=== PATIENT | male | born 1950 | race Caucasian/White ===

== ENCOUNTER → 2016-08-17 | Outpatient (CLI) | payer OTHER, MEDICARE ==
[~2016-08-17] MED LIST: ALBUTEROL2.5 MG/3 M IH; BISOPROLOL5 MG PO; CLOPIDOGREL PO; CRESTOR40 MG PO; DANTRIUM25 MG PO; DUREZOL 5 ML5 ML OP; DYAZIDE 37.5-21 EACH PO; GENTAMICIN180 MG/502 IH; LISINOPRIL20 MG PO; NEURONTIN100 M1 PO; OYSTER SHELL C500 MG PO; PERCOCET 7.5/321 TA1 PO; POLYTRIM 1000010 ML OP; PREDNISONE 5MG5 MG PO; PREDNISONE10 MG PO; PRILOSEC 20MG20 MG PO; PULMICORT0.5 MG/2 M IH; QVAR0.08 MG/AC IH; SINGULAIR10 MG PO; THEOCAP200 MG PO; THEODUR 200MG PO; VENTOLIN0.09 MG IH; VITAMIN B11000 MCG/M IM; ZANTAC150 M1 PO; ZYRTEC ALLERGY10 MG PO
== END ==
LOC: RAD 08:53
DX: M25.552 Pain in left hip (principal); M25.562 Pain in left knee; M16.0 Bilateral primary osteoarthritis of hip; M17.12 Unilateral primary osteoarthritis, left knee

== ENCOUNTER → 2016-12-21 | Outpatient (CLI) | payer OTHER, MEDICARE ==
[2013-12-29 11:05] VITALS: BP 170/100
== END ==
LOC: LAB 08:40
DX: I25.10 Atherosclerotic heart disease of native coronary artery without angina pectoris (principal); M54.16 Radiculopathy, lumbar region; E03.4 Atrophy of thyroid (acquired)

== ENCOUNTER → 2017-01-05 | Outpatient (CLI) | payer OTHER, MEDICARE ==
[~2017-01-05] VITALS: Ht 190.5 cm; Wt 127.3 kg
[2017-01-05 09:43] VITALS: BP 146/93
== END ==
LOC: AMSURD 08:52
DX: R73.02 Impaired glucose tolerance (oral) (principal); I25.10 Atherosclerotic heart disease of native coronary artery without angina pectoris; M54.16 Radiculopathy, lumbar region; Z01.812 Encounter for preprocedural laboratory examination; Z51.81 Encounter for therapeutic drug level monitoring

== ENCOUNTER → 2017-12-06 | Outpatient (CLI) | payer OTHER, MEDICARE ==
[~2017-12-06] VITALS: Ht 190.5 cm; Wt 133.2 kg
[~2017-12-06] MED LIST changes: +BISOPROLOL FUMA10 M1 PO; +FLOMAX0.4 MG PO; +OYSTER SHELL C1 EAC4 PO; -OYSTER SHELL C500 MG PO; +PERCOCET 325 MG1 TAB PO; -PERCOCET 7.5/321 TA1 PO; +PREDNISONE1 MG PO; -QVAR0.08 MG/AC IH; +QVAR8.7 G1 INH; +RT ALBUTEROL CC18 GM IH; +RT SPIRIVA INH18 MCG IH; +THEO-24 20200 MG/CAP PO; -THEOCAP200 MG PO; -VENTOLIN0.09 MG IH
[2017-12-06 10:51] VITALS: BP 168/87
[2017-12-06 11:28] LABS: HEMATOCRIT 43.7 % (42.0-52.0); HEMOGLOBIN 13.9 g/dL (13.5-18.0); MEAN CELL VOLUME 96 fl (78-100); MEAN CORPUSCULAR HEMOGLOBIN 31 pg (27-31); MEAN CORPUSCULAR HGB CONC 32 g/dL (33-37); MEAN PLATELET VOLUME 9.3 fl (7.4-10.4); PLATELET COUNT 205 K/mm3 (130-400); RED BLOOD COUNT 4.55 M/mm3 (4.20-5.60); RED CELL DISTRIBUTION WIDTH 15.1 % (11.5-14.5); WHITE BLOOD COUNT 9.5 K/mm3 (4.8-10.8)
[2017-12-06 11:39] LABS: ALBUMIN 4.2 g/dL (3.5-5.0); BUN/CREATININE RATIO 15.3 (6.0-26.0); CALCIUM 9.5 mg/dL (8.4-10.2); POTASSIUM 4.4 mmol/L (3.6-5.0); TOTAL BILIRUBIN 0.7 mg/dL (0.2-1.3); TOTAL PROTEIN 7.2 g/dL (6.3-8.2)
[2017-12-06 13:25] LABS: URINE APPEARANCE CLEAR; URINE BILIRUBIN NEGATIVE (NEGATIVE); URINE BLOOD NEGATIVE (NEGATIVE); URINE COLOR YELLOW; URINE GLUCOSE NEGATIVE (NEGATIVE); URINE KETONE NEGATIVE (NEGATIVE); URINE LEUKOCYTE ESTERASE NEGATIVE (NEGATIVE); URINE NITRATE NEGATIVE (NEGATIVE); URINE PROTEIN(semi-quant) TRACE mg/dL (NEGATIVE); URINE UROBILINOGEN NORMAL (NORMAL)
[2017-12-07 08:54] LABS: LYMPHOCYTE 14 % (20-51); MONOCYTE 5 % (3-10); NEUTROPHILS 78 % (42-75)
== END ==
LOC: AMSURD 10:12
PROVIDERS: Internal Medicine
DX: Z01.812 Encounter for preprocedural laboratory examination (principal); M54.16 Radiculopathy, lumbar region; Z51.81 Encounter for therapeutic drug level monitoring; E03.4 Atrophy of thyroid (acquired); R73.02 Impaired glucose tolerance (oral); Z12.5 Encounter for screening for malignant neoplasm of prostate; I25.10 Atherosclerotic heart disease of native coronary artery without angina pectoris

== ENCOUNTER → 2018-03-18 | Outpatient (CLI) | payer OTHER, MEDICARE ==
[2017-12-06 10:51] VITALS: BP 168/87
[2018-03-18 11:12] LABS: BASO # 0.1 (0.02-0.10); EOS # 0.1 (0.04-0.40); EOS % 1.1 % (0.0-4.0); HEMATOCRIT 46.7 % (42.0-52.0); HEMOGLOBIN 14.7 g/dL (13.5-18.0); LYMPH# 1.5 (1.50-4.00); MEAN CELL VOLUME 96 fl (78-100); MEAN CORPUSCULAR HEMOGLOBIN 30 pg (27-31); MEAN CORPUSCULAR HGB CONC 32 g/dL (33-37); MEAN PLATELET VOLUME 9.5 fl (7.4-10.4); MONO # 0.8 (0.20-0.80); PLATELET COUNT 270 K/mm3 (130-400); RED BLOOD COUNT 4.88 M/mm3 (4.20-5.60); RED CELL DISTRIBUTION WIDTH 14.9 % (11.5-14.5); WHITE BLOOD COUNT 12.2 K/mm3 (4.8-10.8)
[2018-03-18 11:13] LABS: NEU # 9.6 (1.40-6.50)
[2018-03-18 11:22] LABS: ALBUMIN 4.6 g/dL (3.5-5.0); BUN/CREATININE RATIO 23.3 (6.0-26.0); CALCIUM 10.2 mg/dL (8.4-10.2); POTASSIUM 4.9 mmol/L (3.6-5.0); TOTAL BILIRUBIN 1.2 mg/dL (0.2-1.3); TOTAL PROTEIN 7.4 g/dL (6.3-8.2)
[2018-03-18 12:15] LABS: ERYTHROCYTE SEDIMENTATION RATE 16 mm/hr (0-20)
== END ==
LOC: LAB 10:31
PROVIDERS: Internal Medicine
DX: I25.10 Atherosclerotic heart disease of native coronary artery without angina pectoris (principal); I10 Essential (primary) hypertension; R73.02 Impaired glucose tolerance (oral)

== ENCOUNTER → 2018-05-14 | Outpatient (CLI) | payer OTHER, MEDICARE ==
[2017-12-06 10:51] VITALS: BP 168/87
[2018-05-14 09:18] LABS: HEMATOCRIT 38.9 % (42.0-52.0); HEMOGLOBIN 12.6 g/dL (13.5-18.0); MEAN CELL VOLUME 97 fl (78-100); MEAN CORPUSCULAR HEMOGLOBIN 32 pg (27-31); MEAN CORPUSCULAR HGB CONC 32 g/dL (33-37); MEAN PLATELET VOLUME 9.1 fl (7.4-10.4); PLATELET COUNT 272 K/mm3 (130-400); RED CELL DISTRIBUTION WIDTH 15.6 % (11.5-14.5); WHITE BLOOD COUNT 10.3 K/mm3 (4.8-10.8)
[2018-05-14 09:24] LABS: ALBUMIN 4.5 g/dL (3.5-5.0); POTASSIUM 4.7 mmol/L (3.6-5.0); TOTAL BILIRUBIN 0.9 mg/dL (0.2-1.3); TOTAL PROTEIN 7.3 g/dL (6.3-8.2)
[2018-05-14 10:09] LABS: LYMPHOCYTE 15 % (20-51); MONOCYTE 7 % (3-10); NEUTROPHILS 78 % (42-75)
[2018-05-14 10:16] LABS: URINE APPEARANCE CLEAR; URINE BILIRUBIN NEGATIVE (NEGATIVE); URINE BLOOD NEGATIVE (NEGATIVE); URINE COLOR YELLOW; URINE GLUCOSE NEGATIVE (NEGATIVE); URINE KETONE NEGATIVE (NEGATIVE); URINE LEUKOCYTE ESTERASE NEGATIVE (NEGATIVE); URINE NITRATE NEGATIVE (NEGATIVE); URINE PROTEIN(semi-quant) TRACE mg/dL (NEGATIVE); URINE UROBILINOGEN NORMAL (NORMAL)
[2018-05-14 10:17] LABS: URINE MUCUS PRESENT (NOT PRESENT)
[2018-05-14 11:02] LABS: ERYTHROCYTE SEDIMENTATION RATE 32 mm/hr (0-20)
== END ==
LOC: LAB 08:58
PROVIDERS: Internal Medicine
DX: I10 Essential (primary) hypertension (principal); R73.02 Impaired glucose tolerance (oral); N30.00 Acute cystitis without hematuria

== ENCOUNTER 2018-10-08 13:10 | Inpatient (IN) | payer OTHER, MEDICARE ==
[~2018-10-08] VITALS: Ht 190.5 cm; Wt 117.4 kg
[~2018-10-08 13:10] MED LIST changes: +ADVAIR DISKUS1 DS2 IH; +AZITHROMYCIN 500MGPK PO; +CALCIUM WITH D31 CTB PO; +DEPO-TESTOS200 MG/M1 IM; +LOTRISONE CREAM15 G1 TOP; +OXYCODONE HCL10 M1 PO; -OYSTER SHELL C1 EAC4 PO; -PREDNISONE 5MG5 MG PO; +SINGULAIR PO; -SINGULAIR10 MG PO; -ZANTAC150 M1 PO; +ZANTAC300 MG PO
[2018-10-08 13:38] VITALS: BP 112/69
[2018-10-08 13:45] VITALS: BP 112/69
[2018-10-08 18:57] VITALS: BP 126/71
[2018-10-08 23:20] VITALS: BP 117/73
[2018-10-09 03:10] VITALS: BP 136/74
[2018-10-09 06:39] VITALS: BP 110/61
[2018-10-09 11:20] VITALS: BP 116/62
[2018-10-09 15:00] VITALS: BP 117/62
[2018-10-09 18:00] VITALS: BP 149/65
[2018-10-09 23:27] VITALS: BP 122/55
[2018-10-10 03:16] VITALS: BP 115/71
[2018-10-11 11:00] VITALS: BP 153/75
[2018-10-13 07:49] LABS: HEMOGLOBIN 11.3 g/dL (13.5-18.0); MEAN CELL VOLUME 94 fl (78-100); MEAN CORPUSCULAR HEMOGLOBIN 30 pg (27-31); MEAN CORPUSCULAR HGB CONC 31 g/dL (33-37); MEAN PLATELET VOLUME 9.3 fl (7.4-10.4); PLATELET COUNT 322 K/mm3 (130-400); RED BLOOD COUNT 3.82 M/mm3 (4.20-5.60); RED CELL DISTRIBUTION WIDTH 15.4 % (11.5-14.5); WHITE BLOOD COUNT 14.1 K/mm3 (4.8-10.8)
[2018-10-13 07:50] LABS: CALCIUM 9.4 mg/dL (8.4-10.2); POTASSIUM 4.3 mmol/L (3.6-5.0)
[2018-10-13 07:51] LABS: BAND 2 % (0-10); LYMPHOCYTE 4 % (20-51); MONOCYTE 1 % (3-10); NEUTROPHILS 93 % (42-75)
== END 2018-10-11 11:03 | disposition swing bed (61) | DRG 192 ==
LOC: MED/SURG 13:10
PROVIDERS: Physician Assistant; ADMIT Nurse Practitioner Primary Care
DX: J44.1 Chronic obstructive pulmonary disease with (acute) exacerbation (principal); I10 Essential (primary) hypertension; E78.5 Hyperlipidemia, unspecified; G47.30 Sleep apnea, unspecified; E11.9 Type 2 diabetes mellitus without complications; Z85.828 Personal history of other malignant neoplasm of skin; Z87.891 Personal history of nicotine dependence; M54.5 Low back pain; Z99.81 Dependence on supplemental oxygen; J32.0 Chronic maxillary sinusitis
CPT/HCPCS: A4216; C9113; J0456; J0696; J1071; J1650; J2270; J2930; J3420; J7050

== ENCOUNTER 2018-10-11 11:21 | Inpatient (IN) | payer OTHER, MEDICARE ==
[~2018-10-11] VITALS: Ht 190.5 cm; Wt 123.0 kg
--- NOTE | 2018-10-11 12:36 | NUR ---
admitted pt as swing pt. Personal items recorded were: Cell phone, nuero stimulator with furnace charger, cell phone with furnace charger, small O2 bottle, cane, eye glasses and clothes.
[2018-10-11 13:04] VITALS: BP 153/75
[2018-10-11 18:28] VITALS: BP 163/77
[2018-10-11 18:55] VITALS: BP 163/77
--- NOTE | 2018-10-11 19:29 | NUR ---
pts weight today (10/11/18) was 269 lbs an increase from (10/08/18). I spoke to Maggie the provider regardint the 9lb weight gain. She ordered lasix.
--- NOTE | 2018-10-12 03:50 | NUR ---
In general patient has been on oxygen 2L/NC and at rest his pulse is in the 80-90'S with a sat of 92-93%. With ambulatation though his pulse raises to 130's and sats drop to the low 80's%. He has been recovering fairly quickly through the night until about 20 minutes ago. He was ambulating to the bathroom and made it back to bed but was gasping for air. After sitting for a minute he was still unable to recover and called for nurse, Nurse found patient sitting on edge of bed in moderate respiratory distress, is able to speak in 1 word answers, c/o some pressure across his chest and is unable to "catch his breath" PRN albuterol neb given, tolerated well, with coaching patient is able to bring his respiratory rate down and gradually take deeper breaths. By the end of the neb treatment he is breathing much easier and sats have recoved to >90% on the 2L/NC. Pulse back down below 100.
[2018-10-12 06:25] VITALS: BP 161/73
[2018-10-12 08:00] LABS: ALBUMIN 4.1 g/dL (3.5-5.0); CALCIUM 9.6 mg/dL (8.4-10.2); POTASSIUM 4.4 mmol/L (3.6-5.0); TOTAL BILIRUBIN 0.5 mg/dL (0.2-1.3); TOTAL PROTEIN 6.8 g/dL (6.3-8.2)
[2018-10-12 08:02] LABS: HEMATOCRIT 39.1 % (42.0-52.0); HEMOGLOBIN 12.5 g/dL (13.5-18.0); MEAN CELL VOLUME 94 fl (78-100); MEAN CORPUSCULAR HEMOGLOBIN 30 pg (27-31); MEAN CORPUSCULAR HGB CONC 32 g/dL (33-37); PLATELET COUNT 294 K/mm3 (130-400); RED BLOOD COUNT 4.15 M/mm3 (4.20-5.60); RED CELL DISTRIBUTION WIDTH 14.9 % (11.5-14.5); WHITE BLOOD COUNT 11.3 K/mm3 (4.8-10.8)
[2018-10-12 08:22] LABS: LYMPHOCYTE 11 % (20-51); MONOCYTE 3 % (3-10); NEUTROPHILS 86 % (42-75)
--- NOTE | 2018-10-12 15:04 | NUR ---
pt sitting at side of bed, working on his computer, His O2 is at 2.5L NC. still coughing but not as frequent as this morning. Pt is pleased with a new potassium order that was ordered and given. States it is helping bring up secretions when he coughs. States his pain is at a tolerble level of 4/10, and refuses pain med. Pt has room priviliges and makes frequent restroom visits, he is on lasix for edema. Call light is within reach and will continue to monitor.
[2018-10-12 18:19] VITALS: BP 139/75
--- NOTE | 2018-10-12 19:18 | NUR ---
gave report to miroslava menard nurse miroslava
--- NOTE | 2018-10-12 19:20 | NUR ---
Bedside report received from Kaylie Acosta RN. Pt sitting up side of bed, a/o x 3. Oxygen on at 2L/NC, Sp02 93-94%. Continues on tele-monitor. Denies chest pain. Continues to become SOB with any exertion. Continues to have productive cough.
--- NOTE | 2018-10-12 19:50 | NUR ---
Given a cup of warm tea with honey per pt request. Pt stated "it helps with the tickle in my thoart."
--- NOTE | 2018-10-12 23:30 | NUR ---
[id number] Pt had severe coughing episodes, coughing up thick dark yellow mucus. SOB breath, unable to catch breath, respirations labored. Sp02 92%. Oxygen briefly increased from 2L/NC to 4L/NC and then to simple oxygen mask at 6 liters for comfort until pt felt he was able to catch his breath and returned respirations returned to none labored. 2310 Given 0.5mg of ativan given SIVP. 2325 Sp02 94% on oxygen at 2L/NC.
--- NOTE | 2018-10-13 02:29 | NUR ---
Q hourly checks done. Bed alarm set and call light with in reach of pt. Pulse 74, Sp02 93-95% and respirations 18 and deep.
--- NOTE | 2018-10-13 03:30 | NUR ---
Q hourly checks done. Has been resting in bed, eyes closed with deep even respirations. Sp02 93-95% on 2L/NC. Continues on tele-monitor. Heart rate has been in 70's. At 0300 Sp02 86%, pt nasal cannula out of nose. Pt opened eyes when spoken too and applied oxygen. Sp02 94%.
--- NOTE | 2018-10-13 04:15 | NUR ---
0354 Pt awake and a/o x 3. Became SOB and had labored breathing. Rhonchi noted in upper and lower lungs. Breathing treatment started. 0400 tolerated breathing treatment without difficulty. Sp02 92%. 0412 Sp02 88%, heart 122. Pt stated he had just returned from the bathroom. Oxygen increased to 4L/NC. Sp02 92%. Pt given warm tea with honey per pt request.
--- NOTE | 2018-10-13 04:16 | NUR ---
0354 Pt c/o of pain left lower back, pt requesting pain medication. Dr Zamudio called and notified. Order received for oxycodone 5mg PO x 1 now. 0412 oxycodone 5mg PO given. Pt drinking tea with honey.
--- NOTE | 2018-10-13 05:00 | NUR ---
Oxygen decreased to 3L/NC. Sp02 92%
[2018-10-13 06:34] VITALS: BP 146/78
--- NOTE | 2018-10-13 07:20 | NUR ---
Bedside shift report given to Rola Javier RN
--- NOTE | 2018-10-13 07:30 | NUR ---
BEDSIDE REPORT RECEIVED FROM VINICIO VALADEZ
--- NOTE | 2018-10-13 08:00 | NUR ---
PATIENT SITTING UP IN RECLINER. SHIFT ASSESSMENT COMPLETE. PATIENT ALERT AND ORIENTED X4. REPORTS HAVING PAIN RATED 5-6/10 IN BACK. PATIENT'S COLOR FLUSHED. PATIENT ON OXYGEN VIA NASAL CANNULA AT 2L. PATIENT REPORTS NOT HAVING A VERY GOOD NIGHT DUE TO COUGHING SPELLS. STATES "I'M SORRY TO SAY BUT I KNOW IT'S NOT OVER I KNOW IT'S GOING TO GO ON TODAY" PATIENT REPORTS THAT COUGHING SPELLS HAVE WORSENED. STATES "I DON'T KNOW WHAT'S GOING ON I MEAN IT GETS SO BAD I FEEL LIKE I'M GOING TO BLACKOUT" REPORTS THAT HE IS NOW COUGHING UP THICK GREEN SPUTUM. SP02 92-93% PER [employer] LOADING SUPERVISOR. HEART RATE IN THE 90'S TO LOW 100'S WHILE AT REST. PATIENT VOICES CONCERN ABOUT HIS PULSE OXIMETRY LEVELS RUNNING LOWER THAN THEY HAD BEEN. STATES "I JUST DON'T UNDERSTAND IT THEY ARE TELLING ME I'M IN THE LOW 90'S BUT A COUPLE DAYS AGO THEY WERE SAYING I WAS 97%" PATIENT HAS RONCHI THROUGHOUT ALL LUNG ARBOLEDA. PATIENT HAS +2 EDEMA TO BILAT LOWER EXT. PATIENT ENCOURAGED TO ELEVATE LEGS THROUGHOUT DAY TOLERATED TO HELP WITH SWELLING. PATIENT REPORTS THAT IN THE PAST HE HAS HAD SWELLING IN LEGS BUT STATES "NOTHING THIS BAD" PATIENT HAS ROOM PRIVILEGES. PATIENT'S CALL LIGHT WITHIN REACH.
--- NOTE | 2018-10-13 11:00 | NUR ---
notified that patient continues to have cough that causes patient to feel dizzy and as though he is going to black out. order received for sputum culture. asked about steroid dose continue current steroid dosing for now.
--- NOTE | 2018-10-13 12:35 | NUR ---
PATIENT'S CALL LIGHT GOING OFF. PATIENT HEARD COUGHING FROM COHEN. THIS NURSE PROMPTLY IN ROOM. PATIENT SITTING IN RECLINER IN TRIPOD POSITION. COUGHING AND GASPING FROM COUGHING SO HARD. PATIENT PANICKED. PATIENT'S SPEAKING BROKEN UP DUE TO HAVING DIFFICULTY CATCHING BREATH FROM COUGHING STATES "I CAN'T CATCH MY BREATH" POINTS AT BEDSIDE TABLE AND STATES "LOOK WHAT I'VE COUGHED UP" POINTING AT TISSUE WITH SMALL AMOUNT OF THICK GREEN SPUTUM ON IT. PATIENT'S SP02 90-91%. HEART RATE 124. RESPIRATORY RATE 28. PATIENT SWEATING. PATIENT GIVEN SIMPLE MASK WITH OXYGEN AT 6L FOR COMFORT UNTIL DUONEB STARTED. PATIENT INSTRUCTED TO TRY TO SLOW BREATHING AND TAKE BIG DEEP BREATHS. ENSURED SP02 WAS STILL WITHIN NORMAL LIMITS. JOHNSON AUSCULTATED IN ALL LUNG ARBOLEDA. DUONEB STARTED. SP02 94%. B LOOD PRESSURE 182/72. PATIENT PROVIDED PRN ATIVAN. PATIENT PLACED BACK ON 2L OXYGEN NASAL CANNULA ONCE BREATHING TREATMENT COMPLETE. SP02 90-92% ON 2L. HEART RATE 100'S -110'S. PATIENT REPORTS COUGHING SPELLS MAKE HIM FEEL DIZZY. PATIENT REPORTS THAT WHEN HE BEGINS COUGHING IT MAKES HIM TIRED AND SHORT OF BREATH FROM COUGHING SO HARD. REPORTS WHEN HE COUGHS HE USUALLY STARTING GETTING STUFF UP BUT IT GETS STUCK IN HIS THROAT AND IS UNABLE TO GET IT UP AND OUT DUE TO IT BEING SO THICK WHICH MAKES IT HARDER FOR HIM TO BREATH AND MORE DIFFICULT WHEN HE STARTS COUGHING AGAIN. WILL CONTINUE TO MONITOR PATIENT.
--- NOTE | 2018-10-13 14:10 | NUR ---
BEDSIDE REPORT RECEIVED FROM VINICIO VALADEZ
--- NOTE | 2018-10-13 14:30 | NUR ---
patient lying in bed. patient reports feeling better after ativan dose. states "i'm still coughing but it feels good to relax" sp02 90-91% on 2L.
--- NOTE | 2018-10-13 16:05 | NUR ---
patient ambulated in hallway. ambulates on 2L oxygen nasal cannula. sp02 down to 88-89% on 2L approximately 10-15 outside room. ambulates to just before nurses station and back stays at 88-89% until walking back to room sp02 briefly dips down to 86% but very quickly goes back up to 87% heart rate 121 then goes up to 88-89%. once resting sp02 goes back up to 90-91% on 2L.
--- NOTE | 2018-10-13 18:20 | NUR ---
patient's sp02 88-89% on 2L. increased oxygen to 2.5L. sp02 goes up to 90-91% for a couple minutes then goes back down to 88-89%. increased oxygen to 3L. sp02 89-90% on 3L. notified. keep patient on 3L oxygen. order for iv lasix 20 mg.
[2018-10-13 18:36] VITALS: BP 138/76
--- NOTE | 2018-10-13 19:15 | NUR ---
Pt resting in bed, awake and a/o x 3. Oxygen at 3L/NC. at bedside. Pt pleasant and talkative. No c/o's voiced. Call light with in reach of pt.
--- NOTE | 2018-10-13 19:30 | NUR ---
report given to heidi thorne
--- NOTE | 2018-10-13 22:05 | NUR ---
Nurse was at bedside giving patient his HS med when he sat up on the edge of the bed at around 2151 and said "oh no, not again" Nurse questioned what he meant and he said he felt another coughing spell coming on. He then proceeded to start coughing. He quickly become very distressed. Got a paniced look in his eye and leaned on the bedside table in a tripod position. Nurse reassured patient and tried to ice hockey coach him to slow his breathing down. He was unable to. Duoneb treatment given without improvement, IV ativan given. When patient started to say he felt like he was dying, nurse checked his telemetry. Sats read 73% on 10L/simple mask. Pulse in the 160's. Highest pulse seen was 175, lowest sat was 68%. Dr. Zamudio called to patients bedside at this time. Further orders to come
--- NOTE | 2018-10-13 22:18 | NUR ---
Pt continues to be sitting up on side of bed in tripode position. Oxygen at 10 liters per simple mask. Sp02 78% Continues to have severe coughing and stating he is un able to breathing. Ativan 0.5mg IV given.
--- NOTE | 2018-10-13 22:25 | NUR ---
PER DR. HITCHCOCK ORDER, PATIENT IS TRIALED ON NIV TRILOGY MACHINE, HE WON'T EVEN KEEP THE MASK ON FOR OVER A MINUTE, IT INCREASES HIS PANIC AND HE KEEPS PANTING "CAN'T BREATHE, CAN'T BREATHE" TRILOGY MASK REMOVED AND PATIENT PLACED BACK ON SIMPLE MASK AT [address] HITCHCOCK AT BEDSIDE TO REASSESS PATIENT AT THIS TIME
[2018-10-13 22:50] VITALS: BP 154/86
[2018-10-13 22:51] LABS: HEMATOCRIT 40.6 % (42.0-52.0); HEMOGLOBIN 13.2 g/dL (13.5-18.0); MEAN CELL VOLUME 93 fl (78-100); MEAN CORPUSCULAR HEMOGLOBIN 30 pg (27-31); MEAN CORPUSCULAR HGB CONC 33 g/dL (33-37); PLATELET COUNT 251 K/mm3 (130-400); RED BLOOD COUNT 4.35 M/mm3 (4.20-5.60); RED CELL DISTRIBUTION WIDTH 14.9 % (11.5-14.5); WHITE BLOOD COUNT 12.6 K/mm3 (4.8-10.8)
[2018-10-13 23:08] LABS: CALCIUM 8.7 mg/dL (8.4-10.2)
[2018-10-13 23:14] LABS: BAND 2 % (0-10)
[2018-10-13 23:15] LABS: LYMPHOCYTE 4 % (20-51); METAMYELOCYTE 1 % (0-0); MONOCYTE 5 % (3-10); NEUTROPHILS 88 % (42-75)
[2018-10-13 23:18] LABS: TROPONIN-I < 0.03 ng/mL (0.00-0.06)
[2018-10-13 23:20] LABS: D-DIMER 0.79 mg/L FEU (0.15-0.50)
--- NOTE | 2018-10-14 00:22 | NUR ---
Stone catheter offered, pt refused.
--- NOTE | 2018-10-14 00:48 | NUR ---
2229 States he is breathing easier. Sp02 84% on 10 liters per simple mask. Continues sitting on side of bed in tripod position. Pt able to complete breathing treatments. Given 118mls of Meagher juice with SSKI medication. 2304 Pt repositioned self into bed in supine position. Head of bed elevated at 90 degrees. Sp02 92% at 10 liter per simple mask. States he is breathing easier. Continues to have ocassional coughing. 2309 to x-ray department. Sp02 decreased to 86% while standing for chest x-ray. Pt on oxygen at 10 Liters per simple mask. Continues on tele-monitor with continuous pulse ox. 2317 returned to room per wheel chair. Oxygen at 10 liter per simple mask. Sp02 91%. Transfered self to bed into supine position. 2321 ambulated to the bathroom, Sp02 85%, respirations labored. Continues to cough on and off. Denies chest pain. Pt education on slowing breathing down. 0025 Int start in left hand using a 20 gauge IV catheter. Tolerated without difficulty. At 0016 [facility] Jacoby Travis RN called to inform that pt would go to ICU room 7 and to give report to Lawrence MOONEYsupervisor in charge nurse. 0030 arrived. Zithromax 500mg IV hung. Cefeprime 2 grams IV infused. and taking slow deep breathing. Pt calmn and states he is breathing easier. 0045 Dr Robb lizama visited with pt and .
[2018-10-14 01:05] VITALS: BP 143/90
--- NOTE | 2018-10-14 01:12 | NUR ---
[facility] EMS NOTIFIED OF TRANSFER AT THIS TIME
--- NOTE | 2018-10-14 01:22 | NUR ---
PATIENTS RECORDS, LABS, EKG, PROGRESS NOTES/ADMIT AND DISCHARGE SUMMARIES ALL FAXED TO [facility] ICU AT THIS TIME FOR PROVIDER TO REVIEW
--- NOTE | 2018-10-14 01:33 | NUR ---
EMS ARRIVES, REPORT GIVEN AND TRANSFER PAPERWORK GIVEN TO PARAMEDICS AT THIS TIME
--- NOTE | 2018-10-14 01:51 | NUR ---
PATIENT AMBULATES TO THE BATHROOM WITH 1 ASSIST, IS A LITTLE UNSTEADY, VOIDS CLEAR YELLOW URINE WITHOUT DIFFICULTY AND THEN AMBULATES BACK TO THE EMS COT, IS VERY WINDED AND TIRED, BUCKLED ONTO COT, MONITORS SWITCHED TO EMS MONITORS, IV ZITHROMAX CONTINUES TO INFUSE INTO IV IN PATIENTS LEFT HAND WITHOUT DIFFICULTY, PATIENT LEAVES FACILITY AT THIS TIME EN ROUTE TO [facility] WHERE HE WILL BE A DIRECT ADMIT TO ICU ROOM 7 IN THE CARE OF SCARLET BROCK. DISCHARGED FROM SWING BED AT THIS TIME, PATIENTS PRESENT AT TIME OF TRANSFER, SHE TAKES ALL OF PATIENTS PERSONAL BELONGINGS HOME WITH HER
[2018-10-14] MEDS ORDERED: SOLU-MEDRO125 MG/21 IV (01:59)
[2018-10-14] MEDS ORDERED: DESENEX2% TP (01:59)
[2018-10-14] MEDS ORDERED: POTASSIUM IODID PO (01:59)
[2018-10-14] MEDS ORDERED: PANTOPRAZOLE SO40 MG PO (02:00)
[2018-10-14] MEDS ORDERED: ALLER-FLO15.8 ML NS (02:00)
[2018-10-14] MEDS ORDERED: IPRATROPIUM BROM3 M1 IH (02:01)
[2018-10-14] MEDS ORDERED: ENOXAPARIN40 MG/0.1 SQ (02:01)
[2018-10-14] MEDS ORDERED: DIFLUCAN150 M1 PO (02:02)
== END 2018-10-14 01:51 | disposition short-term general hospital (02) | DRG 190 ==
LOC: MED/SURG 11:21
PROVIDERS: Family Medicine; Nurse Practitioner Primary Care; ADMIT Internal Medicine
DX: J44.0 Chronic obstructive pulmonary disease with (acute) lower respiratory infection (principal); J18.8 Other pneumonia, unspecified organism; J44.1 Chronic obstructive pulmonary disease with (acute) exacerbation; I10 Essential (primary) hypertension; L30.8 Other specified dermatitis; R09.02 Hypoxemia; M54.5 Low back pain; E11.9 Type 2 diabetes mellitus without complications; Z79.84 Long term (current) use of oral hypoglycemic drugs; Z79.891 Long term (current) use of opiate analgesic; Z87.891 Personal history of nicotine dependence; Z99.81 Dependence on supplemental oxygen
CPT/HCPCS: J0456; J0692; J1650; J1940; J2060; J2930; J7050

== ENCOUNTER → 2018-12-02 | Outpatient (CLI) | payer OTHER, MEDICARE ==
[~2018-12-02] MED LIST changes: +ALLER-FLO15.8 ML NS; +DESENEX2% TP; +DIFLUCAN150 M1 PO; +ENOXAPARIN40 MG/0.1 SQ; +IPRATROPIUM BROM3 M1 IH; +PANTOPRAZOLE SO40 MG PO; +POTASSIUM IODID PO; +SOLU-MEDRO125 MG/21 IV
[2018-12-02 17:27] LABS: HEMATOCRIT 31.7 % (42.0-52.0); HEMOGLOBIN 9.8 g/dL (13.5-18.0); MEAN CELL VOLUME 92 fl (78-100); MEAN CORPUSCULAR HEMOGLOBIN 29 pg (27-31); MEAN CORPUSCULAR HGB CONC 31 g/dL (33-37); MEAN PLATELET VOLUME 8.8 fl (7.4-10.4); PLATELET COUNT 329 K/mm3 (130-400); RED BLOOD COUNT 3.44 M/mm3 (4.20-5.60); RED CELL DISTRIBUTION WIDTH 15.1 % (11.5-14.5)
[2018-12-02 18:01] LABS: ALBUMIN 3.8 g/dL (3.5-5.0); CALCIUM 10.2 mg/dL (8.4-10.2); TOTAL BILIRUBIN 0.6 mg/dL (0.2-1.3); TOTAL PROTEIN 6.9 g/dL (6.3-8.2)
[2018-12-02 18:51] LABS: ERYTHROCYTE SEDIMENTATION RATE 100 mm/hr (0-20); LYMPHOCYTE 21 % (20-51); MONOCYTE 8 % (3-10); NEUTROPHILS 65 % (42-75)
[2018-12-03 17:23] LABS: TESTOSTERONE 88 ng/dL (221-716)
== END ==
LOC: LAB 17:12
PROVIDERS: Internal Medicine
DX: D64.9 Anemia, unspecified (principal); E74.39 Other disorders of intestinal carbohydrate absorption; E29.1 Testicular hypofunction; I25.10 Atherosclerotic heart disease of native coronary artery without angina pectoris; E78.5 Hyperlipidemia, unspecified; R20.2 Paresthesia of skin

== ENCOUNTER → 2018-12-16 | Outpatient (CLI) | payer OTHER, MEDICARE ==
[2018-12-16 16:37] LABS: PH-URINE 6.5 (5.0 - 8.0); URINE APPEARANCE CLEAR; URINE BILIRUBIN NEGATIVE (NEGATIVE); URINE BLOOD NEGATIVE (NEGATIVE); URINE COLOR YELLOW; URINE GLUCOSE NEGATIVE (NEGATIVE); URINE KETONE NEGATIVE (NEGATIVE); URINE LEUKOCYTE ESTERASE NEGATIVE (NEGATIVE); URINE NITRATE NEGATIVE (NEGATIVE); URINE PROTEIN(semi-quant) NEGATIVE (NEGATIVE); URINE UROBILINOGEN NORMAL (NORMAL)
== END ==
LOC: LAB 14:33
PROVIDERS: Internal Medicine
DX: N30.00 Acute cystitis without hematuria (principal)

== ENCOUNTER → 2019-07-24 | Outpatient (CLI) | payer MEDICARE, OTHER ==
[2019-07-24 10:22] LABS: HEMATOCRIT 38.6 % (42.0-52.0); HEMOGLOBIN 12.6 g/dL (13.5-18.0); LYMPH# 1.3 (1.50-4.00); MEAN CELL VOLUME 88 fl (78-100); MEAN CORPUSCULAR HEMOGLOBIN 29 pg (27-31); MEAN CORPUSCULAR HGB CONC 33 g/dL (33-37); MEAN PLATELET VOLUME 8.7 fl (7.4-10.4); MONO # 0.6 (0.20-0.80); NEU # 3.2 (1.40-6.50); PLATELET COUNT 274 K/mm3 (130-400); RED BLOOD COUNT 4.37 M/mm3 (4.20-5.60); RED CELL DISTRIBUTION WIDTH 13.8 % (11.5-14.5)
[2019-07-24 10:26] LABS: ALBUMIN 4.4 g/dL (3.4-4.8); POTASSIUM 4.1 mmol/L (3.5-5.1)
[2019-07-24 10:27] LABS: CALCIUM 10.6 mg/dL (8.3-10.5)
[2019-07-24 10:29] LABS: TOTAL PROTEIN 7.3 g/dL (6.2-8.1)
[2019-07-24 10:30] LABS: TOTAL BILIRUBIN 0.8 mg/dL (0.2-1.2)
[2019-07-24 10:35] LABS: MAGNESIUM 1.88 mg/dL (1.60-2.60)
== END ==
LOC: LAB 10:02
PROVIDERS: Internal Medicine
DX: I25.10 Atherosclerotic heart disease of native coronary artery without angina pectoris (principal); D64.9 Anemia, unspecified; E29.1 Testicular hypofunction; R73.02 Impaired glucose tolerance (oral); R20.2 Paresthesia of skin

== ENCOUNTER → 2020-07-01 | Outpatient (CLI) | payer MEDICARE, OTHER | LOC: RAD 11:16 | DX: M16.0 Bilateral primary osteoarthritis of hip (principal) ==

== ENCOUNTER → 2021-01-27 | Outpatient (CLI) | payer MEDICARE, OTHER | LOC: LAB 08:03 | DX: Z20.822 Contact with and (suspected) exposure to COVID-19 (principal) ==

== ENCOUNTER → 2021-02-28 | Outpatient (CLI) | payer MEDICARE, OTHER | LOC: RAD 09:17 | DX: M25.512 Pain in left shoulder (principal) ==

== ENCOUNTER → 2021-10-31 | Day surgery (SDC) | payer MEDICARE, OTHER | END | disposition home or self-care (01) | LOC: MSO 12:03 | DX: D23.62 Other benign neoplasm of skin of left upper limb, including shoulder (principal) ==

== ENCOUNTER → 2022-01-23 | Outpatient (CLI) | payer MEDICARE, OTHER ==
[2022-01-23 12:07] LABS: BASO # 0.01 K/mm3 (0.02-0.10); HEMATOCRIT 39.6 % (42.0-52.0); HEMOGLOBIN 13.8 g/dL (13.5-18.0); LYMPH# 1.15 K/mm3 (1.50-4.00); MEAN CELL VOLUME 91 fl (78-100); MEAN CORPUSCULAR HEMOGLOBIN 32 pg (27-31); MEAN CORPUSCULAR HGB CONC 35 g/dL (33-37); MEAN PLATELET VOLUME 8.8 fl (7.4-10.4); MONO # 0.37 K/mm3 (0.20-0.80); NEU # 3.32 K/mm3 (1.40-6.50); PLATELET COUNT 192 K/mm3 (130-400); RED BLOOD COUNT 4.36 M/mm3 (4.20-5.60); RED CELL DISTRIBUTION WIDTH 13.3 % (11.5-14.5); WHITE BLOOD COUNT 4.9 K/mm3 (4.8-10.8)
[2022-01-23 12:16] LABS: ALBUMIN 4.4 g/dL (3.4-4.8); POTASSIUM 4.2 mmol/L (3.5-5.1)
[2022-01-23 12:17] LABS: CALCIUM 9.2 mg/dL (8.3-10.5)
[2022-01-23 12:18] LABS: TOTAL PROTEIN 7.1 g/dL (6.2-8.1)
[2022-01-23 12:20] LABS: TOTAL BILIRUBIN 1.1 mg/dL (0.2-1.2)
[2022-01-23 12:50] LABS: URINE APPEARANCE CLEAR; URINE BILIRUBIN NEGATIVE (NEGATIVE); URINE BLOOD NEGATIVE (NEGATIVE); URINE COLOR YELLOW; URINE GLUCOSE NEGATIVE (NEGATIVE); URINE KETONE NEGATIVE (NEGATIVE); URINE LEUKOCYTE ESTERASE NEGATIVE (NEGATIVE); URINE NITRATE NEGATIVE (NEGATIVE); URINE PROTEIN(semi-quant) NEGATIVE (NEGATIVE); URINE UROBILINOGEN NORMAL (NORMAL); URINE WBC 0-1 /hpf (0-3)
[2022-01-23 15:01] LABS: ERYTHROCYTE SEDIMENTATION RATE 4 mm/hr (0-20)
[2022-01-23 21:25] LABS: TESTOSTERONE 152 ng/dL (221-716)
== END ==
LOC: LAB 11:40
PROVIDERS: Internal Medicine
DX: Z12.5 Encounter for screening for malignant neoplasm of prostate (principal); Z12.11 Encounter for screening for malignant neoplasm of colon; I10 Essential (primary) hypertension; G47.33 Obstructive sleep apnea (adult) (pediatric); J43.9 Emphysema, unspecified; J45.909 Unspecified asthma, uncomplicated; R73.03 Prediabetes; K90.9 Intestinal malabsorption, unspecified; E29.1 Testicular hypofunction; M25.561 Pain in right knee; M25.551 Pain in right hip; M25.562 Pain in left knee; M25.552 Pain in left hip; R09.89 Other specified symptoms and signs involving the circulatory and respiratory systems; I25.10 Atherosclerotic heart disease of native coronary artery without angina pectoris

== ENCOUNTER → 2023-12-14 | Outpatient (CLI) | payer MEDICARE, OTHER ==
[2023-12-14 10:51] LABS: URINE APPEARANCE CLEAR (CLEAR); URINE BILIRUBIN 1+ (NEGATIVE); URINE COLOR YELLOW (YELLOW); URINE GLUCOSE NEGATIVE (NEGATIVE); URINE KETONE NEGATIVE (NEGATIVE); URINE PROTEIN(semi-quant) NEGATIVE (NEGATIVE)
[2023-12-14 10:52] LABS: URINE BLOOD TRACE-INTACT (NEGATIVE); URINE LEUKOCYTE ESTERASE NEGATIVE (NEGATIVE); URINE NITRATE NEGATIVE (NEGATIVE)
[2023-12-14 10:55] LABS: URINE MUCUS PRESENT (NOT PRESENT)
== END ==
LOC: LAB 10:29
PROVIDERS: Internal Medicine
DX: N39.0 Urinary tract infection, site not specified (principal)

== ENCOUNTER → 2023-12-31 | Outpatient (CLI) | payer MEDICARE, OTHER ==
[2024-02-19 13:26] LABS: HEPATITIS C VIRUS ANTIBODY NON REACTIVE; TESTOSTERONE 315
[2024-02-19 13:41] LABS: ALBUMIN 4.4 g/dL (3.4-4.8); CALCIUM 9.6 mg/dL (8.3-10.5); MAGNESIUM 1.93 mg/dL (1.60-2.60)
[2024-02-19 13:56] LABS: BASO # 0.01 K/mm3 (0.02-0.10); HEMATOCRIT 45.1 % (42.0-52.0); HEMOGLOBIN 15.1 g/dL (13.5-18.0); LYMPH# 1.35 K/mm3 (1.50-4.00); MEAN CELL VOLUME 93 fl (78-100); MEAN CORPUSCULAR HEMOGLOBIN 31 pg (27-31); MEAN CORPUSCULAR HGB CONC 34 g/dL (33-37); MEAN PLATELET VOLUME 8.7 fl (7.4-10.4); MONO # 0.49 K/mm3 (0.20-0.80); NEU # 3.81 K/mm3 (1.40-6.50); PLATELET COUNT 216 K/mm3 (130-400); RED BLOOD COUNT 4.87 M/mm3 (4.20-5.60); RED CELL DISTRIBUTION WIDTH 13.6 % (11.5-14.5); WHITE BLOOD COUNT 5.7 K/mm3 (4.8-10.8)
[2024-02-19 14:01] LABS: PH-URINE 5.5 (5.0 - 8.0); URINE APPEARANCE CLEAR (CLEAR); URINE BILIRUBIN NEGATIVE (NEGATIVE); URINE COLOR YELLOW (YELLOW); URINE GLUCOSE NEGATIVE (NEGATIVE); URINE KETONE NEGATIVE (NEGATIVE); URINE PROTEIN(semi-quant) NEGATIVE (NEGATIVE)
[2024-02-19 14:02] LABS: URINE BLOOD NEGATIVE (NEGATIVE); URINE LEUKOCYTE ESTERASE NEGATIVE (NEGATIVE); URINE NITRATE NEGATIVE (NEGATIVE)
[2024-02-19 14:03] LABS: URINE MUCUS PRESENT (NOT PRESENT)
== END ==
LOC: LAB 12:30
PROVIDERS: Internal Medicine
DX: Z12.5 Encounter for screening for malignant neoplasm of prostate (principal); Z12.11 Encounter for screening for malignant neoplasm of colon; Z11.59 Encounter for screening for other viral diseases; I10 Essential (primary) hypertension; K90.9 Intestinal malabsorption, unspecified; E29.1 Testicular hypofunction; R73.03 Prediabetes

== ENCOUNTER → 2024-05-01 | Outpatient (CLI) | payer MEDICARE, OTHER ==
[2024-05-01 12:24] LABS: BASO # 0.01 K/mm3 (0.02-0.10); HEMATOCRIT 43.8 % (42.0-52.0); HEMOGLOBIN 14.8 g/dL (13.5-18.0); LYMPH# 1.13 K/mm3 (1.50-4.00); MEAN CELL VOLUME 91 fl (78-100); MEAN CORPUSCULAR HEMOGLOBIN 31 pg (27-31); MEAN CORPUSCULAR HGB CONC 34 g/dL (33-37); MEAN PLATELET VOLUME 8.4 fl (7.4-10.4); MONO # 0.39 K/mm3 (0.20-0.80); NEU # 3.45 K/mm3 (1.40-6.50); PLATELET COUNT 205 K/mm3 (130-400); RED BLOOD COUNT 4.84 M/mm3 (4.20-5.60); RED CELL DISTRIBUTION WIDTH 12.7 % (11.5-14.5)
[2024-05-01 12:40] LABS: PROTHROMBIN TIME 10.9 SECONDS (9.0-12.0)
[2024-05-01 12:47] LABS: ALBUMIN 4.5 g/dL (3.4-4.8)
[2024-05-01 12:48] LABS: CALCIUM 9.8 mg/dL (8.3-10.5)
[2024-05-01 12:49] LABS: TOTAL PROTEIN 7.1 g/dL (6.2-8.1)
[2024-05-01 12:56] LABS: MAGNESIUM 2.06 mg/dL (1.60-2.60)
== END ==
LOC: LAB 12:03
PROVIDERS: Internal Medicine
DX: Z01.818 Encounter for other preprocedural examination (principal)